=== PATIENT | female | born 1970 | race Caucasian/White ===

== ENCOUNTER 2017-01-05 08:54 | Emergency (ER) | payer OTHER ==
[2017-01-05 08:54] VITALS: BMI 28.3
[2017-01-05 09:37] LABS: HCG,QUALITATIVE URINE NEGATIVE (NEGATIVE)
[2017-01-05 09:49] LABS: SQUAMOUS EPITHIAL 2 /hpf (0-5); URINE BILIRUBIN NEGATIVE (NEGATIVE); URINE BLOOD 2+ (NEGATIVE); URINE CLARITY Clear (Clear); URINE COLOR Yellow (YELLOW); URINE GLUCOSE (UA) NORMAL (Normal); URINE LEUKOCYTE ESTERASE NEG Leu/uL (Negative); URINE NITRATE NEGATIVE (NEGATIVE); URINE PROTEIN NEGATIVE (NEGATIVE); URINE UROBILINOGEN NORMAL mg/dL (0.2-1.0)
[2017-01-05 10:58] LABS: BASO # 0.1 K/uL (0.0-0.2); EOS # 0.9 K/uL (0.0-0.7); EOS % 9.6 % (0.0-4.0); HEMOGLOBIN 10.6 g/dL (11.0-16.0); LYMPH % 32.2 % (20.0-40.0); MEAN CORPUSCULAR HEMOGLOBIN 26.7 pg (27.0-31.0); MEAN CORPUSCULAR HGB CONC 31.8 g/dL (33.0-37.0); MONO # 0.6 K/uL (0.0-0.8); MONO % 6.9 % (0.0-10.0); NEUT # 4.6 K/uL (1.8-7.0); NEUT % 50.3 % (50.0-75.0); NRBC % 0.1 % (0.0-2.0); RBC 3.98 Mil/uL (3.80-5.20); RED CELL DISTRIBUTION WIDTH 16.9 % (11.5-14.5); WHITE BLOOD COUNT 9.2 K/uL (4.8-10.8)
[2017-01-05 11:09] LABS: GFR AFRICAN-AMERICAN > 60; GFR NON-AFRICAN AMERICAN > 60
[2017-01-05 11:10] LABS: BLOOD UREA NITROGEN 18 mg/dL (7-17); CALCIUM 7.8 mg/dl (8.6-10.4)
--- NOTE | 2017-01-05 11:23 | C.PDOC ---
History Of Present Illness 46-year-old female, presents to the emergency department with complaints of a headache. Patient states she has been experiencing generalized headache, intermittently x3 days, which is described as a dull sensation. patient is also complaining of sore throat, chills and discomfort to left side of abdomen. Pt reports associated urinary urgency. Denies fevers, dysuria, nausea/vomiting, or any other associated symptoms. No other complaints at this time. Time Seen by Provider: 01/05/17 09:24 Chief Complaint (Nursing): Headache History Per: Patient History/Exam Limitations: no limitations Onset/Duration Of Symptoms: Days Current Symptoms Are (Timing): Still Present Severity: Moderate Past Medical History Reviewed: Historical Data, Nursing Documentation, Vital Signs Vital Signs: Last Vital Signs Temp 98.2 F 01/05/17 11:40 Pulse 78 01/05/17 11:40 Resp 18 01/05/17 11:40 BP 96/56 L 01/05/17 11:40 Pulse Ox 99 01/05/17 11:40 Surgical History: Cholecystectomy - [facility] Procedures INTRAOPER CHOLANGIOGRAM (05/07/14) LAPAROSCOPIC CHOLECYSTECTOMY (05/07/14) Family History: States: No Known Family Hx - Social History Hx Tobacco Use: No Hx Alcohol Use: Yes Hx Substance Use: No - Immunization History Hx Tetanus Toxoid Vaccination: Yes Hx Influenza Vaccination: Yes Hx Pneumococcal Vaccination: Yes Review Of Systems Except As Marked, All Systems Reviewed And Found Negative. Constitutional: Positive for: Chills. Negative for: Fever ENT: Positive for: Throat Pain Gastrointestinal: Positive for: Nausea, Abdominal Pain Genitourinary: Negative for: Dysuria Musculoskeletal: Negative for: Neck Pain, Back Pain Neurological: Positive for: Headache. Negative for: Weakness, Numbness, Dizziness Physical Exam - Physical Exam Appears: Non-toxic, No Acute Distress Skin: Warm, Dry, No Rash Head: Atraumatic, Normacephalic Eye(s): bilateral: Normal Inspection, PERRL Ear(s): Bilateral: Normal Nose: Normal Oral Mucosa: Moist Lips: Normal Appearing Throat: No Erythema, No Exudate Neck: Normal ROM Cardiovascular: Rhythm Regular, No Murmur Respiratory: Normal Breath Sounds, No Accessory Muscle Use Gastrointestinal/Abdominal: Soft, No Tenderness, No Guarding, No Rebound Extremity: Normal ROM Neurological/Psych: Oriented x3, Normal Speech ED Course And Treatment - Laboratory Results Result Diagrams: 01/05/17 10:54 01/05/17 10:54 O2 Sat by Pulse Oximetry: 97 Disposition Counseled Patient/Family Regarding: Studies Performed, Diagnosis, Need For Followup - Disposition Referrals: at [facility] [Outside] Disposition: HOME/ ROUTINE Disposition Time: 11:21 Condition: STABLE Additional Instructions: Porfavor siga con downing doctor o la clinica. Prescriptions: Ibuprofen [Motrin] 600 mg PO TID #15 tab Nitrofurantoin Macrocrystals [Macrobid] 1 cap PO BID #14 cap Instructions: Urinary Tract Infection in Women (ED) Forms: General Discharge Instructions, Work Excuse - POA Present On Arrival: None - Clinical Impression Clinical Impression: Abdominal pain, UTI (urinary tract infection) - Scribe Statement The provider has reviewed the documentation as recorded by the Scribe (Cristiano Chun) All medical record entries made by the Scribe were at my direction and personally dictated by me. I have reviewed the chart and agree that the record accurately reflects my personal performance of the history, physical exam, medical decision making, and the department course for this patient. I have also personally directed, reviewed, and agree with the discharge instructions and disposition.
[2017-01-05 11:42] VITALS: BP 96/56; PULSE 78; RESP 18; TEMP 98.2
[2017-01-05 12:22] VITALS: O2SAT 97
== END 2017-01-05 11:55 | disposition home or self-care (01) ==
LOC: C.ER 08:54
DX: N39.0 Urinary tract infection, site not specified (principal)
CPT/HCPCS: 80048; 81001; 84703; 85025; 87086; 96374; 99285; J1885

== ENCOUNTER 2017-04-09 08:17 | Emergency (ER) | payer OTHER ==
[2017-04-09 08:17] VITALS: BMI 28.3
[2017-04-09 08:24] VITALS: O2SAT 100
[2017-04-09 09:02] LABS: URINE BILIRUBIN NEGATIVE (NEGATIVE); URINE BLOOD 2+ (NEGATIVE); URINE COLOR Yellow (YELLOW); URINE GLUCOSE (UA) NORMAL (Normal); URINE KETONE NEGATIVE (NEGATIVE); URINE LEUKOCYTE ESTERASE NEG Leu/uL (Negative); URINE PROTEIN NEGATIVE (NEGATIVE); URINE UROBILINOGEN NORMAL mg/dL (0.2-1.0); WBC URINE < 1 /hpf (0-5)
[2017-04-09 09:04] LABS: RBC URINE 3 /hpf (0-3)
--- NOTE | 2017-04-09 09:08 | C.PDOC ---
History Of Present Illness 46 yr old female presents to the ER with complaints of superpubic/pelvic pain for the past 3 days, states "like before my period comes". Patient reports she was expecting her menses on 03/29 but never got it. Patient denies taking any medication for the pain. Denies fever, chills, nausea, vomiting, diarrhea, dysuria, incontinence, weakness or numbness. SUPRAPUB/PELVIC PAIN X 3 DAYS "LIKE BEFORE MY PERIOD COMES". PS WAS EXPECTING MENSES 03/29 BUT NEVER GOT IT. NO PAIN MEDS TRIED. NO OTHER ASSOC SX EXAM NEG Time Seen by Provider: 04/09/17 08:47 Chief Complaint (Nursing): Female Genitourinary History Per: Patient History/Exam Limitations: no limitations Onset/Duration Of Symptoms: Days (3) Current Symptoms Are (Timing): Still Present Past Medical History Reviewed: Historical Data, Nursing Documentation, Vital Signs Vital Signs: Last Vital Signs Temp 98.4 F 04/09/17 08:22 Pulse 74 04/09/17 08:22 Resp 18 04/09/17 08:22 BP 136/89 04/09/17 08:22 Pulse Ox 100 04/09/17 09:27 Surgical History: Cholecystectomy - [facility] Procedures INTRAOPER CHOLANGIOGRAM (05/07/14) LAPAROSCOPIC CHOLECYSTECTOMY (05/07/14) Family History: States: No Known Family Hx - Social History Hx Tobacco Use: No Hx Alcohol Use: Yes Hx Substance Use: No - Immunization History Hx Tetanus Toxoid Vaccination: No Hx Influenza Vaccination: No Hx Pneumococcal Vaccination: No Review Of Systems Except As Marked, All Systems Reviewed And Found Negative. Constitutional: Negative for: Fever, Chills Gastrointestinal: Positive for: Abdominal Pain (superpubic/pelvic ). Negative for: Nausea, Vomiting, Diarrhea Genitourinary: Negative for: Dysuria, Incontinence Neurological: Negative for: Weakness, Numbness Physical Exam - Physical Exam Appears: Non-toxic, No Acute Distress Skin: Warm, Dry, No Rash Head: Atraumatic, Normacephalic Oral Mucosa: Moist Chest: Symmetrical, No Tenderness Cardiovascular: Rhythm Regular, No Murmur Respiratory: Normal Breath Sounds, No Rales, No Rhonchi, No Wheezing Gastrointestinal/Abdominal: Normal Exam, Soft, No Tenderness, No Guarding, No Rebound Extremity: Normal ROM, No Swelling Neurological/Psych: Oriented x3, Normal Speech, Normal Motor ED Course And Treatment - Laboratory Results Result Diagrams: 04/09/17 09:02 04/09/17 09:02 O2 Sat by Pulse Oximetry: 100 (RA) Pulse Ox Interpretation: Normal Reevaluation Time: :44 Reassessment Condition: Improved Medical Decision Making Medical Decision Making: PLAN: * CBC * BMP * HCG * Urinalysis * Toradol IVP Disposition Counseled Patient/Family Regarding: Studies Performed, Diagnosis, Need For Followup - Disposition Referrals: [facility] [Outside] [facility] [Outside] Disposition: HOME/ ROUTINE Disposition Time: :44 Condition: IMPROVED Instructions: Pelvic Pain in Women (ED) Forms: [employer] (North Korean) Print Language: LAO - Clinical Impression Clinical Impression: Pelvic pain, Missed menses - Scribe Statement The provider has reviewed the documentation as recorded by the Tayleribe Kasia Agrawal Provider Attestation: All medical record entries made by the Tayleribe were at my direction and personally dictated by me. I have reviewed the chart and agree that the record accurately reflects my personal performance of the history, physical exam, medical decision making, and the department course for this patient. I have also personally directed, reviewed, and agree with the discharge instructions and disposition.
[2017-04-09 09:09] LABS: HEMATOCRIT 37.4 % (34.0-47.0); MEAN CELL VOLUME 84.5 fL (81.0-99.0); MEAN CORPUSCULAR HEMOGLOBIN 28.2 pg (27.0-31.0); MEAN CORPUSCULAR HGB CONC 33.4 g/dL (33.0-37.0); MEAN PLATELET VOLUME 9.2 fL (7.2-11.7); WHITE BLOOD COUNT 8.6 K/uL (4.8-10.8)
[2017-04-09 09:25] LABS: CHLORIDE 101 mmol/L (98-107); POTASSIUM 4.2 mmol/L (3.6-5.2); SODIUM 136 mmol/L (132-148)
[2017-04-09 09:27] LABS: GFR AFRICAN-AMERICAN > 60
[2017-04-09 09:28] LABS: BLOOD UREA NITROGEN 8 mg/dL (7-17); CALCIUM 9.3 mg/dl (8.6-10.4); CARBON DIOXIDE 24 mmol/L (22-30); GLUCOSE,RANDOM 97 mg/dL (65-105)
[2017-04-09 09:57] VITALS: BP 108/72; PULSE 58; RESP 16; TEMP 97.9
== END 2017-04-09 10:12 | disposition home or self-care (01) ==
LOC: C.ER 08:17
DX: R10.2 Pelvic and perineal pain (principal); N92.5 Other specified irregular menstruation
CPT/HCPCS: 80048; 81001; 85027; 96374; 99285; J1885

== ENCOUNTER 2017-07-30 08:23 | Emergency (ER) | payer OTHER ==
[2017-07-30 08:24] VITALS: BMI 34.6
[2017-07-30 09:20] VITALS: PULSE 61; RESP 18; O2SAT 100
--- NOTE | 2017-07-30 10:01 | C.PDOC ---
Time Seen by Provider: 07/30/17 09:04 Chief Complaint (Nursing): ENT Problem History Per: Patient Onset/Duration Of Symptoms: Days (3) Current Symptoms Are (Timing): Still Present Location Of Pain: Throat Associated Symptoms: Fever (subjective), Sore Throat Severity: Moderate Additional History Per: Prior Records Past Medical History Reviewed: Historical Data, Nursing Documentation, Vital Signs Vital Signs: Last Vital Signs Temp 98.8 F 07/30/17 09:00 Pulse 61 07/30/17 09:00 Resp 18 07/30/17 09:00 BP 118/79 07/30/17 09:00 Pulse Ox 100 07/30/17 09:00 - Medical History PMH: No Chronic Diseases Surgical History: Cholecystectomy - [facility] Procedures INTRAOPER CHOLANGIOGRAM (05/07/14) LAPAROSCOPIC CHOLECYSTECTOMY (05/07/14) Family History: States: Unknown Family Hx - Social History Hx Tobacco Use: No Hx Alcohol Use: No Hx Substance Use: No - Immunization History Hx Tetanus Toxoid Vaccination: No Hx Influenza Vaccination: No Hx Pneumococcal Vaccination: No Review Of Systems Except As Marked, All Systems Reviewed And Found Negative. Constitutional: Negative for: Weakness ENT: Positive for: Throat Pain. Negative for: Nose Congestion Cardiovascular: Negative for: Chest Pain Respiratory: Negative for: Cough, Shortness of Breath Gastrointestinal: Negative for: Vomiting, Abdominal Pain, Diarrhea Musculoskeletal: Negative for: Neck Pain Skin: Negative for: Rash Neurological: Negative for: Weakness, Numbness Physical Exam - Physical Exam Appears: Non-toxic, No Acute Distress Skin: Normal Color, Warm, Dry, No Rash Head: Atraumatic, Normacephalic Eye(s): bilateral: Normal Inspection, PERRL, EOMI Ear(s): Bilateral: Normal Oral Mucosa: Moist, No Drooling, No Trismus Throat: Erythema, No Exudate, No Drooling, No Mass Neck: Normal ROM, Supple Lymphatic: No Adenopathy Cardiovascular: Rhythm Regular Respiratory: Normal Breath Sounds, No Accessory Muscle Use Gastrointestinal/Abdominal: Soft, No Tenderness Extremity: Normal ROM Neurological/Psych: Oriented x3, Normal Speech, Normal Motor, Normal Sensation ED Course And Treatment - Laboratory Results Interpretation Of Abnormal: Rapid strep negative. O2 Sat by Pulse Oximetry: 100 Pulse Ox Interpretation: Normal Reassessment Condition: Improved Disposition Counseled Patient/Family Regarding: Studies Performed, Diagnosis, Need For Followup, Rx Given - Disposition Referrals: at [facility] [Outside] Disposition: HOME/ ROUTINE Disposition Time: 10:01 Condition: STABLE Additional Instructions: Follow up in the clinic. Return to the ER if you develop high fever, trouble breathing or swallowing, worsening of symptoms or if you have any other concerns. Prescriptions: Ibuprofen [Motrin Tab] 600 mg PO Q8 PRN #30 tab PRN Reason: Pain, Moderate (4-7) Instructions: Pharyngitis (ED) Print Language: YI - Clinical Impression Clinical Impression: Viral pharyngitis
[2017-07-30 10:14] VITALS: BP 115/79; TEMP 98.1
== END 2017-07-30 10:15 | disposition home or self-care (01) ==
LOC: C.ER 08:23
DX: J02.9 Acute pharyngitis, unspecified (principal)

== ENCOUNTER 2018-02-15 10:10 | Emergency (ER) | payer OTHER ==
[2018-02-15 10:10] VITALS: BMI 37.5
[2018-02-15 10:26] VITALS: PULSE 69; TEMP 99.5
[2018-02-15 11:04] LABS: SQUAMOUS EPITHIAL 4 /hpf (0-5); URINE BACTERIA RARE (<OCC); URINE BILIRUBIN NEGATIVE (NEGATIVE); URINE BLOOD 2+ (NEGATIVE); URINE COLOR Yellow (YELLOW); URINE GLUCOSE (UA) NORMAL (Normal); URINE LEUKOCYTE ESTERASE 2+ Leu/uL (Negative); URINE PROTEIN NEGATIVE (NEGATIVE); URINE UROBILINOGEN NORMAL mg/dL (0.2-1.0)
--- NOTE | 2018-02-15 11:05 | C.PDOC ---
History Of Present Illness <Miguel Ángel Moulton - Last Filed: 02/15/18 11:21> <Andrea Paulino DO - Last Filed: 02/15/18 18:04> CC: Bilateral flank pain and lower back pain Patient is a 47 year old LMP ( 02/04/18), with no known past medical history, who presents to the ED with complaint of bilateral flank pain /back pain that has been going on for a week. Patient admits to associated symptoms of dysuria, urinary hesitancy and frequency that has been ongoing for a 2-4days and subjective fever X1 day. Patient denies any recent trauma/ heavy lifting, hematuria, chills, nausea, vomiting. Patient states that she has been using a topical analgesic, which has not provided significant symptomatic relief. (Miguel Ángel Moulton) History Per: Patient History/Exam Limitations: no limitations Onset/Duration Of Symptoms: Days Current Symptoms Are (Timing): Still Present Severity: Moderate Pain Scale Rating Of: 7 Location: Bilateral flank pain and lower back pain Quality: Achy <Miguel Ángel Moulton - Last Filed: 02/15/18 11:21> <Andrea Paulino DO - Last Filed: 02/15/18 18:04> Time Seen by Provider: 02/15/18 10:27 Chief Complaint (Nursing): Female Genitourinary Past Medical History - Medical History PMH: No Chronic Diseases Surgical History: Cholecystectomy Family History: States: Unknown Family Hx - Social History Hx Tobacco Use: No Hx Alcohol Use: No Hx Substance Use: No - Immunization History Hx Tetanus Toxoid Vaccination: No Hx Influenza Vaccination: No Hx Pneumococcal Vaccination: No <Miguel Ángel Moulton - Last Filed: 02/15/18 11:21> Vital Signs: Last Vital Signs Temp 99.5 F 02/15/18 10:22 Pulse 69 02/15/18 11:26 Resp 16 02/15/18 11:26 BP 105/68 02/15/18 11:26 Pulse Ox 100 02/15/18 11:29 - [facility] Procedures INTRAOPER CHOLANGIOGRAM (05/07/14) LAPAROSCOPIC CHOLECYSTECTOMY (05/07/14) Review Of Systems Constitutional: Positive for: Fever. Negative for: Chills, Sweats, Weakness, Malaise, Weight loss Cardiovascular: Negative for: Chest Pain, Palpitations, Orthopnea, Edema Respiratory: Negative for: Shortness of Breath Gastrointestinal: Negative for: Nausea, Vomiting, Abdominal Pain Genitourinary: Positive for: Dysuria, Frequency. Negative for: Hematuria, Vaginal Discharge, Vaginal Bleeding, Pelvic Pain, Rash Musculoskeletal: Positive for: Back Pain. Negative for: Neck Pain, Shoulder Pain, Arm Pain, Hand Pain, Leg Pain, Foot Pain Skin: Negative for: Rash Neurological: Negative for: Weakness, Numbness, Confusion, Dizziness <Miguel Ángel Moulton - Last Filed: 02/15/18 11:21> Physical Exam - Physical Exam Appears: Well Skin: Normal Color Head: Atraumatic, Normacephalic Eye(s): bilateral: EOMI Oral Mucosa: Moist Cardiovascular: Rhythm Regular Respiratory: Normal Breath Sounds, No Decreased Breath Sounds, No Accessory Muscle Use, No Rales Gastrointestinal/Abdominal: Normal Exam, Bowel Sounds, Soft, No Tenderness, No Organomegaly, No Mass Back: CVA Tenderness, Decreased ROM, Paraspinal Tenderness, No Straight Leg Raising, Other (T9-T12 paraspinal tenderness ) Extremity: Normal ROM, No Pedal Edema <Miguel Ángel Moulton - Last Filed: 02/15/18 11:21> ED Course And Treatment O2 Sat by Pulse Oximetry: 100 <Miguel Ángel Moulton - Last Filed: 02/15/18 11:21> Medical Decision Making <Miguel Ángel Moulton - Last Filed: 02/15/18 11:21> <Andrea Paulino DO - Last Filed: 02/15/18 18:04> Medical Decision Making: UA: LE (2+) and WBC: 63 Follow up urine culture (Miguel Ángel Moulton) Disposition Discussed With : Andrea Paulino DO - Disposition Disposition Time: 11:20 <Miguel Ángel Moulton - Last Filed: 02/15/18 11:21> <Andrea Paulino DO - Last Filed: 02/15/18 18:04> - Disposition Referrals: Sary Garcia, [Non-Staff] - Disposition: HOME/ ROUTINE Condition: GOOD Additional Instructions: Please discharge patient home Please start prescribed antibiotics as instructed Please follow up with urine culture Please follow up with your PMD within a 1-2 weeks Please return to the hospital if symptoms of fever, chills, worsening CVA tenderness, nausea, vomiting or hematuria Please increase water intake Please take care Prescriptions: Ibuprofen [Motrin] 600 mg PO Q6 PRN #20 tab PRN Reason: Pain, Moderate (4-7) Sulfamethoxazole/Trimethoprim [Bactrim DS 800 mg-160 mg] 1 tab PO BID #20 tab Instructions: Urinary Tract Infection, Adult (DC) Forms: General Discharge Instructions, Work/School/Gym Excuse, [facility] (Spanish) - Clinical Impression Clinical Impression: UTI (urinary tract infection) - PA / CHECKER / Resident Statement MANUEL has reviewed & agrees with the documentation as recorded. / has examined the patient and agrees with the treatment plan. <Andrea Paulino DO - Last Filed: 02/15/18 18:04>
[2018-02-15 11:06] LABS: URINE CLARITY SLHAZY (Clear)
[2018-02-15 11:27] VITALS: BP 105/68; RESP 16
[2018-02-15 11:28] VITALS: O2SAT 100
== END 2018-02-15 11:26 | disposition home or self-care (01) ==
LOC: C.ER 10:10
DX: N39.0 Urinary tract infection, site not specified (principal)

== ENCOUNTER 2018-04-25 01:00 | Emergency (ER) | payer SELFPAY ==
[2018-04-25 01:00] VITALS: BMI 37.5
[2018-04-25] MEDS ORDERED: Sodium Chloride 0.9% 1,000 ML IV ONE (01:32)
[2018-04-25] MEDS ORDERED: Sodium Chloride 0.9% 1,000 ML ONE (01:40)
[2018-04-25 01:48] LABS: BASO % 0.3 % (0.0-2.0); EOS # 0.9 K/uL (0.0-0.7); EOS % 10.8 % (0.0-4.0); HEMOGLOBIN 11.9 g/dL (11.0-16.0); LYMPH # 1.2 K/uL (1.0-4.3); LYMPH % 13.5 % (20.0-40.0); MEAN CELL VOLUME 83.3 fL (81.0-99.0); MEAN CORPUSCULAR HEMOGLOBIN 27.6 pg (27.0-31.0); MEAN CORPUSCULAR HGB CONC 33.1 g/dL (33.0-37.0); MONO # 0.4 K/uL (0.0-0.8); MONO % 5.1 % (0.0-10.0); NEUT # 6.1 K/uL (1.8-7.0); NEUT % 70.3 % (50.0-75.0); RBC 4.32 Mil/uL (3.80-5.20); RED CELL DISTRIBUTION WIDTH 16.7 % (11.5-14.5); WHITE BLOOD COUNT 8.7 K/uL (4.8-10.8)
[2018-04-25 01:52] LABS: SQUAMOUS EPITHIAL 4 /hpf (0-5); URINE BACTERIA RARE (<OCC); URINE BILIRUBIN NEGATIVE (NEGATIVE); URINE CLARITY Clear (Clear); URINE COLOR Yellow (YELLOW); URINE GLUCOSE (UA) NORMAL (Normal); URINE LEUKOCYTE ESTERASE NEG Leu/uL (Negative); URINE PROTEIN NEGATIVE (NEGATIVE); URINE UROBILINOGEN NORMAL mg/dL (0.2-1.0)
[2018-04-25 01:59] LABS: HCG,QUALITATIVE URINE NEGATIVE (NEGATIVE); URINE BLOOD NEGATIVE (NEGATIVE)
[2018-04-25 02:02] LABS: BLOOD UREA NITROGEN 11 mg/dL (7-17); GFR NON-AFRICAN AMERICAN > 60
[2018-04-25 02:03] LABS: ALB/GLOB RATIO 1.2 (1.0-2.1); ALBUMIN 4.4 g/dL (3.5-5.0); ALT/SGPT 159 U/L (9-52); AST/SGOT 154 U/L (14-36); CALCIUM 8.7 mg/dl (8.6-10.4); LIPASE 75 U/L (23-300)
--- NOTE | 2018-04-25 03:28 | C.PDOC ---
History Of Present Illness 47 year old female presents to the ER with a complaint of abdominal pain and diarrhea since yesterday after eating a seafood dish. Patient has had some improvement of diarrhea with OTC medication but still feels nauseous and has not had improvement of pain. Denies fever, sick contact, or recent travel. Patient is s/p cholecystectomy. Time Seen by Provider: 04/25/18 01:19 Chief Complaint (Nursing): Abdominal Pain History Per: Patient History/Exam Limitations: no limitations Onset/Duration Of Symptoms: Days Current Symptoms Are (Timing): Still Present Location Of Pain/Discomfort: Diffuse Quality Of Discomfort: Unable To Describe Associated Symptoms: Nausea, Diarrhea. denies: Fever Exacerbating Factors: None Alleviating Factors: None Recent travel outside of the [place]: No Abnormal Vaginal Bleeding: No Past Medical History Reviewed: Historical Data, Nursing Documentation, Vital Signs Vital Signs: Last Vital Signs Temp 99.2 F 04/25/18 02:22 Pulse 80 04/25/18 02:22 Resp 18 04/25/18 02:22 BP 103/62 04/25/18 02:22 Pulse Ox 99 04/25/18 02:22 Surgical History: Cholecystectomy - [facility] Procedures INTRAOPER CHOLANGIOGRAM (05/07/14) LAPAROSCOPIC CHOLECYSTECTOMY (05/07/14) Family History: States: Unknown Family Hx - Social History Hx Tobacco Use: No Hx Alcohol Use: No Hx Substance Use: No - Immunization History Hx Tetanus Toxoid Vaccination: No Hx Influenza Vaccination: No Hx Pneumococcal Vaccination: No Review Of Systems Constitutional: Negative for: Fever, Chills Cardiovascular: Negative for: Chest Pain, Palpitations Respiratory: Negative for: Cough, Shortness of Breath Gastrointestinal: Positive for: Nausea, Abdominal Pain, Diarrhea Neurological: Negative for: Weakness, Numbness Physical Exam - Physical Exam Appears: Non-toxic Skin: Normal Color, Warm, Dry Head: Atraumatic, Normacephalic Eye(s): bilateral: Normal Inspection Oral Mucosa: Moist Neck: Normal, Supple Chest: Symmetrical, No Tenderness Cardiovascular: Rhythm Regular Respiratory: Normal Breath Sounds, No Rales, No Rhonchi, No Wheezing Gastrointestinal/Abdominal: Soft, Tenderness (Diffuse), No Guarding, No Rebound Back: No CVA Tenderness Extremity: Normal ROM Neurological/Psych: Oriented x3, Normal Speech ED Course And Treatment - Laboratory Results Result Diagrams: 04/25/18 01:45 04/25/18 01:45 O2 Sat by Pulse Oximetry: 99 (Room air) Pulse Ox Interpretation: Normal Progress Note: Blood work and urinalysis ordered, results were negative. IV fluids, zofran, toradol, and pepcid administered. Reevaluation Time: 03:38 Reassessment Condition: Improved (Pt feels better, abd soft, NT. Labs and Return precautions d/w pt who understand and agreed to plan) Disposition Counseled Patient/Family Regarding: Diagnosis, Need For Followup, Rx Given - Disposition Referrals: [facility] [Outside] Disposition: HOME/ ROUTINE Disposition Time: 03:39 Condition: STABLE Additional Instructions: Avoid solid/ greasy foods/Dairy Liquid diet for 24 hrs at least Take medications as directed Return to ER if worse Prescriptions: Famotidine [Pepcid] 20 mg PO DAILY #10 tab Ondansetron [Zofran Odt] 4 mg PO TID #7 odt Instructions: Viral Gastroenteritis, Adult (DC) Forms: [employer] (Kazakh) Print Language: [place] ISLANDER - Clinical Impression Clinical Impression: Gastroenteritis - PA / TUBE LASER OPERATOR / Resident Statement MD/DO has reviewed & agrees with the documentation as recorded. - Scribe Statement The provider has reviewed the documentation as recorded by the Scribzhao Boykin All medical record entries made by the Tayleribe were at my direction and personally dictated by me. I have reviewed the chart and agree that the record a ccurately reflects my personal performance of the history, physical exam, medical decision making, and the department course for this patient. I have also personally directed, reviewed, and agree with the discharge instructions and disposition.
[2018-04-25 03:39] VITALS: BP 97/60; PULSE 76; RESP 16; TEMP 98.3
[2018-04-25 03:41] VITALS: O2SAT 99
== END 2018-04-25 04:02 | disposition home or self-care (01) ==
LOC: C.ER 01:00
DX: K52.9 Noninfective gastroenteritis and colitis, unspecified (principal); Z90.49 Acquired absence of other specified parts of digestive tract
CPT/HCPCS: 80053; 81001; 83690; 84703; 85025; 96374; 96375; 99284; J1885; J2405; J7030

== ENCOUNTER 2018-06-01 09:05 | Emergency (ER) | payer OTHER ==
[2018-06-01 09:05] VITALS: BMI 37.5
[2018-06-01 09:18] VITALS: TEMP 98.3
[2018-06-01 09:36] LABS: SQUAMOUS EPITHIAL 1 /hpf (0-5); URINE BILIRUBIN NEGATIVE (NEGATIVE); URINE BLOOD 1+ (NEGATIVE); URINE CLARITY Clear (Clear); URINE COLOR Yellow (YELLOW); URINE GLUCOSE (UA) NORMAL (Normal); URINE LEUKOCYTE ESTERASE NEG Leu/uL (Negative); URINE PROTEIN NEGATIVE (NEGATIVE); URINE UROBILINOGEN NORMAL mg/dL (0.2-1.0)
[2018-06-01 09:39] LABS: HCG,QUALITATIVE URINE NEGATIVE (NEGATIVE)
[2018-06-01] MEDS ORDERED: Naproxen 550 mg Tab PO STA (10:20)
[2018-06-01] MEDS ORDERED: Naproxen 550 mg Tab PO ONE (10:39)
--- NOTE | 2018-06-01 10:52 | C.PDOC ---
History Of Present Illness 47 y/o female presents to ED with c/o abdominal discomfort, headache, low back back and occasional sweats for 1 month. Patient states she had her menses 1 month ago only lasting 1 day when normally is 3 days, reports she missed period this month. Patient is not on control and denies fever, cough, nausea, vomiting, diarrhea, vaginal bleeding, dysuria, or any other complaints at this time. Patient reports that this abdominal discomfort feels like her menstrual cramps. Time Seen by Provider: 06/01/18 09:25 Chief Complaint (Nursing): Abdominal Pain History Per: Patient History/Exam Limitations: no limitations Onset/Duration Of Symptoms: Days, Intermittent Episodes Current Symptoms Are (Timing): Still Present Radiation Of Pain To:: None Quality Of Discomfort: Unable To Describe Associated Symptoms: denies: Fever, Chills, Vomiting Exacerbating Factors: None Alleviating Factors: None Past Medical History Reviewed: Historical Data, Nursing Documentation, Vital Signs Vital Signs: Last Vital Signs Temp 98.3 F 06/01/18 09:14 Pulse 82 06/01/18 09:14 Resp 20 06/01/18 09:14 BP 117/75 06/01/18 09:14 Pulse Ox 99 06/01/18 09:14 - Medical History PMH: No Chronic Diseases Surgical History: [facility] - [facility] Procedures INTRAOPER CHOLANGIOGRAM (05/07/14) LAPAROSCOPIC CHOLECYSTECTOMY (05/07/14) Family History: States: No Known Family Hx - Social History Hx Tobacco Use: No Hx Alcohol Use: No Hx Substance Use: No - Immunization History Hx Tetanus Toxoid Vaccination: No Hx Influenza Vaccination: No Hx Pneumococcal Vaccination: No Review Of Systems Constitutional: Positive for: Sweats. Negative for: Fever, Chills Eyes: Negative for: Pain ENT: Negative for: Ear Pain Cardiovascular: Negative for: Chest Pain Respiratory: Negative for: Cough, Shortness of Breath Gastrointestinal: Positive for: Abdominal Pain. Negative for: Nausea, Vomiting, Diarrhea Genitourinary: Negative for: Dysuria Musculoskeletal: Positive for: Back Pain Skin: Negative for: Rash Neurological: Positive for: Headache Physical Exam - Physical Exam Appears: Non-toxic, No Acute Distress Skin: Warm, Dry, No Rash Head: Atraumatic, Normacephalic Eye(s): bilateral: Normal Inspection Oral Mucosa: Moist Throat: No Erythema, No Exudate Neck: Normal ROM, Supple Chest: Symmetrical, No Tenderness Cardiovascular: Rhythm Regular, No Friction Rub Respiratory: Normal Breath Sounds, No Rales, No Rhonchi, No Wheezing Gastrointestinal/Abdominal: Bowel Sounds (active), Soft, No Tenderness, No Guarding, No Rebound, No Hernia Back: Normal Inspection, No CVA Tenderness Extremity: Normal ROM, Capillary Refill (<2 seconds), No Swelling Neurological/Psych: Oriented x3, Normal Speech, Normal Cognition, Normal Motor Gait: Steady ED Course And Treatment O2 Sat by Pulse Oximetry: 99 (RA) Pulse Ox Interpretation: Normal Medical Decision Making Medical Decision Making: Plan: Naproxen, Meclizine administered. Abdomen exam is normal at this time. is negative. On re-exam, the patient is resting comfortably and improvement of symptoms. Lungs are CTA, heart is RRR, abdomen is soft, non-tender and tolerating PO well. Follow up with the medical doctor within 1-2 days. Return if worsened. Disposition - Disposition Referrals: [facility] [Outside] [facility] [Outside] Disposition: HOME/ ROUTINE Disposition Time: 11:08 Condition: STABLE Additional Instructions: Follow up with the medical doctor within 1-2 days. Return if worsened. Prescriptions: Metoclopramide [Reglan] 1 tab PO TID PRN #25 tab PRN Reason: Nausea/Vomiting Naproxen 375 mg PO BID #20 tablet Instructions: Menopause Forms: [facility] (Irish) Print Language: GUATEMALAN - Clinical Impression Clinical Impression: Early menopause - PA / PERSONAL INJURY LAW SPECIALIST / Resident Statement MD/DO has reviewed & agrees with the documentation as recorded. - Scribe Statement The provider has reviewed the documentation as recorded by the Yariel Padilla All medical record entries made by the Yariel were at my direction and personally dictated by me. I have reviewed the chart and agree that the record accurately reflects my personal performance of the history, physical exam, medical decision making, and the department course for this patient. I have also personally directed, reviewed, and agree with the discharge instructions and disposition.
[2018-06-01 11:28] VITALS: BP 119/79; PULSE 84; RESP 16
[2018-06-01 12:31] VITALS: O2SAT 99
== END 2018-06-01 11:28 | disposition home or self-care (01) ==
LOC: C.ER 09:05
DX: Z78.0 Asymptomatic menopausal state (principal)

== ENCOUNTER 2018-09-25 08:36 | Outpatient (CLI) | payer OTHER | END 2018-09-25 08:37 | disposition home or self-care (01) | LOC: C.LAB 08:36 | DX: M06.9 Rheumatoid arthritis, unspecified (principal); M10.9 Gout, unspecified; E03.9 Hypothyroidism, unspecified; D64.9 Anemia, unspecified; N39.0 Urinary tract infection, site not specified ==

== ENCOUNTER 2018-10-16 13:35 | Emergency (ER) | payer OTHER ==
[2018-10-16 14:43] VITALS: BMI 33.6
[2018-10-16 14:50] VITALS: PULSE 68; TEMP 98.6; O2SAT 100
--- NOTE | 2018-10-16 17:23 | C.PDOC ---
History Of Present Illness 48-year-old female presents to the ED for evaluation of left-sided anterior chest wall pain radiating to her back. Patient admits to repetitive motions at work. She has not taken any medicine at home and denies fever, chills, shortness of breath and cough. Time Seen by Provider: 10/16/18 15:56 Chief Complaint (Nursing): Chest Pain History Per: Patient History/Exam Limitations: no limitations Onset/Duration Of Symptoms: Hrs Current Symptoms Are (Timing): Still Present Quality: "Pain" Additional History Per: Patient Past Medical History Reviewed: Historical Data, Nursing Documentation, Vital Signs Vital Signs: Last Vital Signs Temp 98.6 F 10/16/18 14:45 Pulse 68 10/16/18 14:45 Resp 17 10/16/18 14:45 BP 144/87 10/16/18 14:45 Pulse Ox 100 10/16/18 14:45 - Medical History PMH: No Chronic Diseases Surgical History: Cholecystectomy - [facility] Procedures INTRAOPER CHOLANGIOGRAM (05/07/14) LAPAROSCOPIC CHOLECYSTECTOMY (05/07/14) Family History: States: Unknown Family Hx - Social History Hx Tobacco Use: No Hx Alcohol Use: No Hx Substance Use: No - Immunization History Hx Tetanus Toxoid Vaccination: No Hx Influenza Vaccination: No Hx Pneumococcal Vaccination: No Review Of Systems Constitutional: Negative for: Fever, Chills Cardiovascular: Positive for: Chest Pain (left anterior chest wall ) Respiratory: Negative for: Cough, Shortness of Breath Gastrointestinal: Negative for: Nausea, Vomiting Musculoskeletal: Positive for: Back Pain Skin: Negative for: Rash, Lesions, Jaundice, Bruising Neurological: Negative for: Weakness, Numbness Physical Exam - Physical Exam Appears: Non-toxic, No Acute Distress Skin: Normal Color, Warm, Dry Head: Atraumatic, Normacephalic Chest: Symmetrical, No Deformity, Tenderness (reproducible, to left sternal border ) Cardiovascular: Rhythm Regular, No Murmur Respiratory: Normal Breath Sounds, No Rales, No Rhonchi, No Wheezing Back: Other (left trapezius tenderness ) Extremity: Normal ROM, Capillary Refill (less than 2 seconds ) Neurological/Psych: Normal Speech, Normal Cognition ED Course And Treatment ECG: Interpreted By Me, Viewed By Me ECG Rhythm: Sinus Rhythm Interpretation Of ECG: Normal Sinus Rhythm at rate 66bpm. Rate From EC O2 Sat by Pulse Oximetry: 100 (on RA) Pulse Ox Interpretation: Normal Medical Decision Making Medical Decision Making: Progress: Toradol IM given. Disposition Counseled Patient/Family Regarding: Diagnosis, Need For Followup, Rx Given - Disposition Referrals: Luis Garcia MD [Staff Provider] - Disposition: HOME/ ROUTINE Disposition Time: 17:28 Condition: IMPROVED Additional Instructions: [place] ibuprofeno para el dolor. Compresa tibia a parte dolorosa. Eliza movimien tos repetitivos. Seguimiento con el Dr. Bergman en la prxima semana. Take ibuprofen for pain. Warm compress to painful part. Avoid repetitive movements. Follow up with Dr Garcia in next week. meds to [facility] [address] Prescriptions: Ibuprofen [Motrin] 600 mg PO TID #30 tab Instructions: Muscle Strain (DC), Costochondritis (DC) Forms: Gen Discharge Inst Norwegian, [employer] (Norwegian) Print Language: MALAY - Clinical Impression Clinical Impression: Costochondritis, Trapezius muscle strain - PA / [employer] / Resident Statement MD/DO has reviewed & agrees with the documentation as recorded. - Scribe Statement The provider has reviewed the documentation as recorded by the Scribe (Dariela Espinosa) All medical record entries made by the Scribe were at my direction and personally dictated by me. I have reviewed the chart and agree that the record accurately reflects my personal performance of the history, physical exam, medical decision making, and the department course for this patient. I have also personally directed, reviewed, and agree with the discharge instructions and disposition.
[2018-10-16 17:43] VITALS: BP 139/72; RESP 18
--- NOTE | 2018-10-17 20:28 | CARD ---
APPROVED REPORT Date of service: 10/16/2018 EKG Measurement Heart [id number] <Conclusion> Normal sinus rhythm Normal ECG
== END 2018-10-16 17:43 | disposition home or self-care (01) ==
LOC: C.ER 13:35
DX: M94.0 Chondrocostal junction syndrome [Tietze] (principal); S29.012A Strain of muscle and tendon of back wall of thorax, initial encounter; X50.9XXA Other and unspecified overexertion or strenuous movements or postures, initial encounter; Y99.0 Civilian activity done for income or pay
CPT/HCPCS: 93005; 96372; 99284; J1885